=== PATIENT | male | born 1970 | race Caucasian/White ===

== ENCOUNTER → 2018-10-28 | Outpatient (REF) | payer BC ==
[2018-10-28 19:19] LABS: URIC ACID 8.5 MG/DL (3.5-7.2)
[2018-10-28 19:19] LABS: RHEUMATOID FACTOR QUANT < 10.0 IU/ML (<15.0); TOTAL PROTEIN 7.3 GM/DL (6.4-8.2)
[2018-10-28 19:28] LABS: FOLATE 16.6 NG/ML; TOTAL 25(OH) VITAMIN D 19.5 NG/ML (30.0-100.0); VITAMIN B12 LEVEL 376 PG/ML
[2018-10-28 20:06] LABS: ERYTHROCYTE SEDIMENTATION RATE 4 mm/hr (0-15)
[2018-10-28 20:07] LABS: ESTIMATED AVERAGE GLUCOSE 120 MG/DL (60-110); HEMOGLOBIN A1c 5.8 %
[2018-11-02 13:15] LABS: ALBUMIN 4.57 GM/DL (3.29-5.55); ALBUMIN % 62.6 % (55.8-66.1); ALPHA-1-GLOBULIN % 3.6 % (2.9-4.9); ALPHA-1-GLOBULINS 0.26 GM/DL (0.17-0.41); ALPHA-2-GLOBULINS 0.66 GM/DL (0.42-0.99)
[2018-11-02 13:16] LABS: BETA-1-GLOBULINS 0.45 GM/DL (0.28-0.60); BETA-1-GLOBULINS % 6.2 % (4.7-7.2); BETA-2-GLOBULINS % 5.5 % (3.2-6.5); GAMMA GLOBULIN % 13.1 % (11.1-18.8); GAMMA GLOBULINS 0.96 GM/DL (0.65-1.58)
[2018-11-03 08:06] LABS: ANTINUCLEAR ANTIBODIES DIRECT Negative (Negative); CERULOPLASMIN 20.3 mg/dL (16.0-31.0); COPPER PLASMA 84 ug/dL (72-166); LEAD BLOOD ADULT 2 ug/dL (0-4); MERCURY LEVEL None Detected ug/L (0.0-14.9)
== END ==
LOC: M LABNEURO 14:09
DX: E11.40 Type 2 diabetes mellitus with diabetic neuropathy, unspecified (principal); M10.9 Gout, unspecified
CPT/HCPCS: 82525

== ENCOUNTER → 2022-05-15 | Outpatient (CLI) | payer BC ==
[2022-05-15 14:55] LABS: FERRITIN 291 NG/ML (26-388); IRON (FE) 92 UG/DL (65-175); PERCENT SATURATION 28.8 % (19.7-50.0); RHEUMATOID FACTOR QUANT < 10.0 IU/ML (<15.0); TOTAL IRON BINDING CAPACITY 320 UG/DL (250-450); TOTAL PROTEIN 7.5 GM/DL (6.4-8.2)
[2022-05-15 15:14] LABS: HEMOGLOBIN A1c 5.4 %
[2022-05-15 23:17] LABS: FOLATE 10.7 NG/ML; VITAMIN B12 LEVEL 258 PG/ML
== END ==
LOC: M PLALAB 10:47
PROVIDERS: ATTEND Psychiatry & Neurology Neurology
DX: E61.1 Iron deficiency (principal); E61.0 Copper deficiency; E53.8 Deficiency of other specified B group vitamins; E11.40 Type 2 diabetes mellitus with diabetic neuropathy, unspecified